=== PATIENT | female | born 1955 | race Caucasian/White ===

== ENCOUNTER 2021-09-17 14:19 | Outpatient (CLI) | payer OTHER, SELFPAY ==
[2021-09-17 15:59] LABS: SARS-CoV-2 RNA PCR Negative (Negative)
== END 2021-09-17 14:20 | disposition home or self-care (01) ==
LOC: CHSLAB 14:26
PROVIDERS: PCP Physician Assistant; Visit Provider Physician Assistant
DX: Z20.822 Contact with and (suspected) exposure to COVID-19 (principal)
CPT/HCPCS: C9803; U0003; U0005

== ENCOUNTER 2022-09-12 14:59 | Observation (INO) | payer MEDICARE, SELFPAY ==
[2022-09-12] VITALS (19 sets, daily range): BP systolic 141–150; BP diastolic 76–91; PULSE 94–118; RESP 18–28; TEMP 36.6–36.9; O2SAT 82–99; BMI 16.2
--- NOTE | ~2022-09-12 | XR_ITS ---
EXAMINATION: XR chest 1V portable Exam Date/Time: 09/12/2022 16:00 CDT HISTORY: Shortness of breath Comparison: None available. RESULT: Lines, tubes, and devices: None. Lungs and pleura: Hyperinflated lungs. Bilateral apical pleural scarring. Calcified left lower lobe granuloma. Bilateral costophrenic angle blunting, likely due to pleural scarring. Cardiomediastinal silhouette: Unremarkable. Other: No acute osseous or upper abdominal finding. IMPRESSION: No acute cardiopulmonary process. Reviewed, dictated and finalized at location K.
[2022-09-12] MEDS: IPRATROPIUM 0.5 MG/ALBUTEROL SULFATE 2.5 MG AMPUL.NEB 3 ML INHALATION ×3 (15:39→23:59)
--- NOTE | 2022-09-12 15:43 | ECG_ITS ---
Measurements Intervals [place] Rate: 94 P: 86 MA: 129 QRS: 98 QRSD: 82 T: 71 QT: 327 QTc: 410 Interpretive Statements SINUS RHYTHM RIGHT AXIS DEVIATION RIGHT ATRIAL ENLARGEMENT BASELINE ARTIFACT- I, II, III, AVR, AVL, V1-V4 BORDERLINE ECG NO PREVIOUS ECG AVAILABLE FOR COMPARISON Electronically Signed On 09-12-2022 20:17:40 CDT by Tonny Sorto D.O.
[2022-09-12] MEDS: methylPREDNISolone SOD SUCC 125 MG VIAL IV PUSH (16:07)
[2022-09-12 16:34] LABS: Basophils Absolute Auto 0.03 K/mm3 (0.00-0.10); Basophils Percent Auto 0.4 % (0.0-1.0); Eosinophils Absolute Auto 0.04 K/mm3 (0.02-0.50); Eosinophils Percent Auto 0.5 % (1.0-6.0); Hematocrit 47.3 % (35.0-49.0); Immature Granulocyte Absolute 0.03 K/mm3 (0.00-0.00); Immature Granulocyte Percent A 0.4 % (0.0-0.0); Lymphocytes Absolute Auto 1.18 K/mm3 (1.10-4.50); Lymphocytes Percent Auto 14.7 % (18.0-42.0); Mean Corpuscular HGB Conc 33.8 g/dL (32.0-36.0); Mean Corpuscular Hemoglobin 33.5 pg (27.0-31.0); Mean Platelet Volume 9.3 fl (9.2-11.8); Monocytes Absolute Auto 0.92 K/mm3 (0.10-0.90); Monocytes Percent Auto 11.5 % (2.0-11.0); Neutrophils Absolute Auto 5.8 K/mm3 (1.7-7.2); Neutrophils Percent Auto 72.5 % (50.0-70.0); Platelet Count Result 321 K/mm3 (150-420); Red Blood Count 4.78 M/mm3 (4.20-5.40); Red Cell Distribution Width 11.7 % (11.6-14.4)
[2022-09-12 16:35] LABS: HCO3 ABG 26.2 mmol/L (23-29); Oxygen Content ABG 20.7 %vol (16.0-22.0); Oxygen Saturation ABG 87.4 % (95-97); Oxyhemoglobin 85.7 % (94-100); PCO2 ABG 47.8 mmHg (35-45); PO2 ABG 53.4 mmHg (80-90); Total Hemoglobin 17.2 g/dL (12.0-18.0); pH ABG 7.36 (7.35-7.45)
[2022-09-12 16:37] LABS: Device ROOM AIR; Modified Allen's Test Pass; Site Drawn LEFT RADIAL
[2022-09-12 16:50] LABS: D Dimer 0.32 mg/L (0.19-0.50); INR 0.9; Partial Thromboplastin Time 29.3 SEC (23.90-30.70); Prothrombin Time 10.2 Seconds (9.50-12.10)
[2022-09-12 16:59] LABS: Alanine Aminotransferase 25 U/L (14-59); Albumin Level 3.8 g/dL (3.4-5.0); Alkaline Phosphatase 117 U/L (46-116); Anion Gap 6 mmol/L (8-16); Aspartate Amino Transferase 14 U/L (15-37); Bilirubin,Total 0.3 mg/dL (0.00-1.00); Blood Urea Nitrogen 3 mg/dL (7-18); Calcium 9.3 mg/dL (8.5-10.1); Carbon Dioxide 33 mmol/L (21-32); Chloride 94 mmol/L (98-108); Estimated Glomerular Filt Rate > 60; Glucose 101 mg/dL (70-99); Magnesium 1.7 mg/dL (1.8-2.4); NT Pro B Type Natriuretic Pept 62 pg/mL (0-125); Osmolality Calculated 272 mOsm/kg (285-295); Potassium 4.3 mmol/L (3.5-5.1); Sodium 133 mmol/L (136-145); Troponin I 4.3 ng/L (0.00-60.4)
[2022-09-12 17:30] LABS: SARS-CoV-2 RNA PCR Negative (Negative)
[2022-09-12 17:31] LABS: Influenza Control Valid (Valid)
[2022-09-12] MEDS: LEVALBUTEROL NEB 1.25 MG/3 ML INHALATION (17:32)
--- NOTE | 2022-09-12 17:55 | ED.SOB ---
HPI - SOB/Dyspnea General Chief Complaint: Shortness of Breath/Dyspnea Stated Complaint: SOB, asthma Time Seen by Provider: 09/12/22 15:05 Source: patient and family Mode of arrival: ambulatory History of Present Illness HPI Narrative: this is a 66-year-old female with a history of COPD recently saw her primary on Wednesday and was started on a Z-Gianluca. The patient has inhalers at home with and has been using it since Wednesday with no relief and today she just began more short of breath, does not use oxygen at home and initially air O2 sats were 82% and currently after receiving oxygen at2L per nasal cannula her O2 sats were 98%. There is no chest pain no abdominal pain she does have a nonproductive cough with no flank pain no fever chills. MD elicited complaint: shortness of breath and cough Pertinent past history: COPD Onset (ago): day(s) Context: recent illness Timing: constant Severity: moderate Exacerbating factors: coughing Relieving factors: oxygen, rest, bronchodilators and upright position Known history of: COPD Associated symptoms: cough Treatment prior to arrival: oxygen Related Data Home oxygen amount: none Home Medications Medication Instructions Recorded Confirmed benzonatate 100 mg capsule 100 mg PO TID PRN Cough 09/12/22 09/12/22 budesonide-formoterol HFA 160 See Rx Instructions .Route .COMPLEX 09/12/22 09/12/22 mcg-4.5 mcg/actuation aerosol inhaler montelukast 10 mg tablet 10 mg PO DAILY 09/12/22 09/12/22 Allergies Allergy/AdvReac Type Severity Reaction Status Date / Time No Known Allergies Allergy Verified 09/12/22 15:21 Review of Systems Review of Systems: All systems reviewed & are unremarkable except as noted in HPI and below [facility] Past Medical History Medical History COPD (chronic obstructive pulmonary disease) Exam Const: General: healthy appearing and no acute distress Nutritional Appearance: thin Limitations: no limitations HENMT: Head: normal to inspection Face/Nose/Sinus: Normal external nose present Face and sinus: normal facial exam Mouth: Yes Normal oral and palatal mucosa present Eyes: Conjunctivae: conjunctivae normal Pupils: Equal, round and reactive pupils present EOM: EOMs intact bilaterally Neck: Neck: normal visual inspection, no lymphadenopathy and no meningeal signs Chest: Chest palpation & inspection: normal inspection of the chest Resp: Effort & Inspection: normal respiratory effort Auscultation: diminished lung sounds Cardio: Rate: tachycardic Rhythm: regular rhythm GI: GI Palp: Yes Soft to palpation Auscultation: normal bowel sounds : General: Yes bladder normal to palpation Urinary Catheter: Urinary Catheter: patent and draining Back/Spine/Pelvis: Back: no CVA tenderness Skin: General skin exam: normal color Rashes: no rashes Wounds: no wounds Neuro: General: patient oriented x3, moves all extremities, no meningeal signs and no focal motor deficits Extrem: General: normal to inspection Psych: Mental Status: mental status grossly normal Affect: normal affect Course Course Emergency Course: patient after reassessment has a cough and is mildly short of breath especially after her cough patient had received DuoNebs and Xopenex and IV Solu-Medrol patient currently on 2L and satting at 98%, reviewed x-ray EKG and blood work. Vital Signs Vital signs: Vital Signs Temperature 36.8 C 09/12/22 15:00 Pulse Rate 101 H 09/12/22 15:00 Respiratory Rate 28 H 09/12/22 15:00 Blood Pressure 150/88 H 09/12/22 15:00 Pulse Oximetry 82 L 09/12/22 15:00 Oxygen Delivery Room Air 09/12/22 15:00 Temperature 36.6 C 09/12/22 16:00 Pulse Rate 111 H 09/12/22 17:49 Respiratory Rate 22 H 09/12/22 17:49 Blood Pressure 148/76 H 09/12/22 17:00 Pulse Oximetry 98 09/12/22 17:49 Oxygen Delivery Nasal Cannula 09/12/22 17:00 Oxygen Flow Rate 2 09/12/22 17:49 [facility] -
[2022-09-12 18:10] LABS: Base Excess ABG -2.8 mmol/L (0-2); HCO3 ABG 24.4 mmol/L (23-29); Oxygen Saturation ABG 96.7 % (95-97); Oxyhemoglobin 95.2 % (94-100); PCO2 ABG 51.2 mmHg (35-45); PO2 ABG 101.7 mmHg (80-90); Total Hemoglobin 15.6 g/dL (12.0-18.0)
[2022-09-12 18:11] LABS: Device NASAL CANNULA; Modified Allen's Test Pass; Site Drawn RIGHT RADIAL
--- NOTE | 2022-09-12 19:10 | ADMGEN ---
This patient, Sadie Conner, was admitted to 2nd Floor Room 208-1. Patient/family oriented to hospital policies and general routines including ID bracelet, bed and alarms, visiting hours, pain management, procedures, bathroom and other care routines, personal items, smoking policy, room service/diet, and visiting hours. Information on how to activate the Rapid Response Team has been discussed. Patient/Family are encouraged to report perceived risks to care and to ask questions if they do not understand what they are told or what they should do.
[2022-09-12] MEDS: NICOTINE (*PBKC) 21 MG PATCH 1 PATCH TRANSDERM (20:04)
[2022-09-12] MEDS: methylPREDNISolone SOD SUCC 125 MG VIAL 80 MG IV PUSH (21:27)
[2022-09-12] MEDS: traZODone HCL 50 MG TABLET PO (21:29)
[2022-09-12] MEDS: BENZONATATE 100 MG CAPSULE PO (21:29)
[2022-09-13] VITALS (10 sets, daily range): BP systolic 135–136; BP diastolic 86; PULSE 92–117; RESP 19–22; TEMP 36.3–36.8; O2SAT 89–97
[2022-09-13] MEDS: traMADol HCL (*CRX) 25 MG TABLET PO (01:06)
[2022-09-13 05:04] LABS: Mean Corpuscular HGB Conc 34.9 g/dL (32.0-36.0); Mean Corpuscular Hemoglobin 34.4 pg (27.0-31.0); Mean Corpuscular Volume 98.6 fL (78.0-102.0); Mean Platelet Volume 8.8 fl (9.2-11.8); Platelet Count Result 289 K/mm3 (150-420); Red Blood Count 4.36 M/mm3 (4.20-5.40); Red Cell Distribution Width 11.9 % (11.6-14.4); White Blood Count 4.6 K/mm3 (4.8-10.8)
[2022-09-13 05:19] LABS: Alanine Aminotransferase 21 U/L (14-59); Albumin Level 3.6 g/dL (3.4-5.0); Alkaline Phosphatase 107 U/L (46-116); Anion Gap 1 mmol/L (8-16); Aspartate Amino Transferase 11 U/L (15-37); Bilirubin,Total 0.2 mg/dL (0.00-1.00); Blood Urea Nitrogen 4 mg/dL (7-18); Calcium 9.2 mg/dL (8.5-10.1); Carbon Dioxide 37 mmol/L (21-32); Chloride 96 mmol/L (98-108); Estimated CRCL calculation 55 ml/min; Estimated Glomerular Filt Rate > 60; Glucose 147 mg/dL (70-99); Osmolality Calculated 277 mOsm/kg (285-295); Potassium 5.1 mmol/L (3.5-5.1); Sodium 134 mmol/L (136-145); Total Protein 7.6 g/dL (6.4-8.2)
[2022-09-13] MEDS: methylPREDNISolone SOD SUCC 125 MG VIAL 80 MG IV PUSH (06:06)
[2022-09-13] MEDS: IPRATROPIUM 0.5 MG/ALBUTEROL SULFATE 2.5 MG AMPUL.NEB 3 ML INHALATION (06:27)
[2022-09-13] MEDS: HYDROcodone/acetaminophen (*CRX) 5-325 MG TABLET 1 TAB PO (06:46)
--- NOTE | 2022-09-13 08:02 | PM.IMHP ---
H&P: HPI History of Present Illness Date/Time: 09/13/22 08:02 Chief Complaint: sob/ dyspnea Narrative: this is a 66-year-old female presented to emergency department with complaints of worsening shortness of breath. Patient has a past medical history of COPD. She is she is currently tobacco dependence. According to her shortness of breath worsened on Wednesday she called her primary care physician who prescribed her a Z-Gianluca. Patient notes that on Wednesday her situation did not improve so she proceeded to our emergency department. Patient notes that while she was at home she did use her nebulizer q 4 hours she also used her 's albuterol in her Symbicort. Patient WBCs 8.0, hemoglobin 16.1, hematocrit 47.3, platelets 321 sodium 133, potassium 4.3, BUN 3, creatinine 0.45, glucose 101, magnesium 1.7, total bilirubin 0.3, AST 14, ALT 25, troponin 4.3, BUN 62, ABG pH 7.36, CO2 47.8, O2 53.4, bicarb 26.2, chest x-ray no new findings patient treated with Solu-Medrol do nebulizer this admission. Patient condition has improved. The patient denies CP, palpitation, extremity numbness, lightheadedness, dizziness, constipation, diarrhea, chills, or fever. she continues to have shortness of breath with his chronic for her, she also continues to have an uncontrolled cough with chest congestion. Patient notes that she is near baseline and is anxious to discharge due to lack of sleep. Patient oxygen removed patient is satting 88% and greater on .room air which is probably baseline for her I did recommend the patient follow with primary care physician for oxygen eval. Discharge instructions reviewed with patient, as well as provided in writing per nursing staff. The instructions also include specific and strict return/GO TO THE ER as well as f/u information. All questions have been answered, and the patient and/or family deny any further questions with discharge and discharge plan. Review of Systems Review of Systems: All systems reviewed & are unremarkable except as noted in HPI and below [facility] Past Medical History Medical History (Updated 09/13/22 @ 08:10 by HUNG Peres) COPD (chronic obstructive pulmonary disease) Tobacco dependence Social History Social History Smoking packs per day: 0.5 Smoking cigarettes per day: 10.0 Years smoked: 50 Smoking pack-years: 25.00 Smoking status: Current every day smoker Tobacco type: cigarettes Second hand tobacco smoke exposure: Yes Alcohol intake: current Drinks per week: 12 Substance use: never Has the Lack of Transportation Kept You From Medical Appointments or From Getting Medications?: No Within the Past 12 Months, Were You Worried Whether Your Food Would Run Out Before You Got Money to Buy More?: Never True What is Your Housing Situation Today?: I Do Not Have Housing Are You Worried That in the Next 2 Months, You May Not Have Your Own Housing to Live In?: No Do You Have Trouble Paying Your Heating Or Electricity Bill?: No Do You Have Trouble Paying For Medicines?: No Are You Currently Unemployed and Looking for Work?: No Highest Level of Education Completed: Trade/Vocational Certificate Do You Have Trouble With Childcare or the Care of a Family Member?: No Spiritual care concerns: No Meds Home Medications and Allergies Home Medications Medication Instructions Recorded Confirmed Type budesonide-formoterol HFA 160 See Rx Instructions .Route .COMPLEX 09/12/22 09/12/22 History mcg-4.5 mcg/actuation aerosol inhaler montelukast 10 mg tablet 10 mg PO DAILY 09/12/22 09/12/22 History albuterol sulfate 90 mcg/actuation 1 inh inhalation QID PRN shortness 09/13/22 Rx aerosol inhaler (ProAir HFA) of breath or wheezing #6.7 grams azithromycin 250 mg tablet 250 mg PO DAILY 6 days #6 tabs 09/13/22 Rx benzonatate 100 mg capsule 100 mg PO TID PRN Cough 30 days 09/13/22 Rx #60 caps g
--- NOTE | 2022-09-13 09:00 | PC.NURSE ---
Pt states she will take her medications when she gets home.
--- NOTE | 2022-09-13 09:30 | PC.NURSE ---
Discharge instructions reviewed with pt. All questions answered. Pt transported via wheelchair to private vehicle for discharge.
--- NOTE | 2022-09-15 13:30 | PC.NURSE ---
Pt readmitted to following day. No discharge call back completed.
== END 2022-09-13 09:30 | disposition home or self-care (01) ==
LOC: CHSED 18:52 → CHS2ND 18:57
PROVIDERS: Nurse Practitioner; Admitting Provider Internal Medicine; Emergency Provider Emergency Medicine; PCP Physician Assistant; Visit Provider Internal Medicine
DX: J44.1 Chronic obstructive pulmonary disease with (acute) exacerbation (principal); F17.210 Nicotine dependence, cigarettes, uncomplicated; Z20.822 Contact with and (suspected) exposure to COVID-19
CPT/HCPCS: 36415; 36600; 71045; 80053; 82805; 83735; 83880; 84484; 85025; 85027; 85380; 85610; 85730; 87040; 87804; 93005; 94640; 96374; 96376; 99285; A9270; G0378; J2930; U0003; U0005

== ENCOUNTER 2022-09-14 09:10 | Observation (INO) | payer MEDICARE, SELFPAY ==
[2022-09-14] VITALS (14 sets, daily range): BP systolic 150–170; BP diastolic 79–106; PULSE 94–110; RESP 16–22; TEMP 36.4–37; O2SAT 57–100; BMI 16.5
--- NOTE | ~2022-09-14 | XR_ITS ---
EXAMINATION: XR chest 2V DATE: 09/14/2022 10:26 INDICATION: Shortness of breath TECHNIQUE: PA and lateral views of the chest were obtained. COMPARISON: Chest radiograph dated 09/12/2022 FINDINGS: Hyperexpansion of the lungs with scattered increased lucency and architectural distortion, flattening of the diaphragm and increased retrosternal clear space suggestive but not diagnostic of COPD. Calci fied nodules near the left costophrenic angle consistent with old granulomatous disease. Minimal biap ical pleural-parenchymal scarring. No other airspace opacities, pulmonary edema, pleural effusion or pneumothorax. The cardiomediastinal silhouette is normal. Mild to moderate thoracic spondylosis. IMPRESSION: 1. Hyperexpanded lungs suggestive but not diagnostic of COPD. No acute cardiopulmonary disease. Reviewed, dictated and finalized at location A. [facility] IMPRESSION: 1. Hyperexpanded lungs suggestive but not diagnostic of COPD. No acute cardiopu lmonary disease.
--- NOTE | 2022-09-14 09:39 | ECG_ITS ---
Measurements Intervals [place] Rate: 92 P: 80 [place]: 139 QRS: 80 QRSD: 85 T: 74 QT: 325 QTc: 404 Interpretive Statements SINUS RHYTHM ATRIAL PREMATURE COMPLEXES POSSIBLE RIGHT ATRIAL ENLARGEMENT PEAKED T WAVES- CONSIDER HYPERKALEMIA BASELINE ARTIFACT- I, II, III, AVR, AVL, AVF, V1-V2 ABNORMAL ECG COMPARED TO ECG 09/12/2022 15:43:35 PEAKED T WAVES- CONSIDER HYPERKALEMIA NOW PRESENT Electronically Signed On 09-14-2022 10:33:21 [employer] by Tonny Sorto D.O.
--- NOTE | 2022-09-14 09:43 | ED.SOB ---
HPI - SOB/Dyspnea General Chief Complaint: Shortness of Breath/Dyspnea Stated Complaint: sob Source: patient History of Present Illness HPI Narrative: 66-year-old a history of smoking, COPD has been having worsening shortness of breath for the past 1 week. She presented to the ER on 09/12/2022 and noted to have COPD exasperation. She had an ABG on 3 L which was noted to be 730/51/102. She had negative cardiac enzymes, negative D-dimer, negative influenza, negative COVID and an unremarkable chest x-ray. The patient was discharged on Garcia 04/2022 as she felt better and wanted to go home. She presents to the ER today with -- worsening shortness of breath with an oxygen saturation of 57% on room air. She was placed on 2 L with normalization of oxygen saturations -- cough with yellow sputum. No fever. No chest pain. MD elicited complaint: shortness of breath and cough Pertinent past history: COPD Onset (ago): day(s) ( Started 7 days ago) Timing: constant Severity: severe Exacerbating factors: exertion Relieving factors: nothing Known history of: COPD Associated symptoms: denies other symptoms, cough and sputum production Related Data Home oxygen amount: none Home Medications Medication Instructions Recorded Confirmed budesonide-formoterol HFA 160 See Rx Instructions .Route .COMPLEX 09/12/22 09/14/22 mcg-4.5 mcg/actuation aerosol inhaler montelukast 10 mg tablet 10 mg PO DAILY 09/12/22 09/14/22 Allergies Allergy/AdvReac Type Severity Reaction Status Date / Time No Known Allergies Allergy Verified 09/14/22 09:44 Review of Systems Review of Systems: All systems reviewed & are unremarkable except as noted in HPI and below Constitutional: Constitutional: Reports as per HPI and Reports no additional constitutional complaints Eyes: Eyes: Reports as per HPI and Reports no additional eye complaints ENT: Reports system reviewed and no additional complaints, except as documented and Reports as per HPI Cardiovascular: Cardiovascular: Reports as per HPI and Reports no additional cardiovascular complaints Respiratory: Respiratory: Reports as per HPI, Reports no additional respiratory complaints, Reports cough and Reports dyspnea Gastrointestinal: Gastrointestinal: Reports as per HPI and Reports no additional gastrointestinal complaints Genitourinary: Genitourinary: Reports no additional female genitourinary complaints and Reports as per HPI Musculoskeletal: Musculoskeletal: Reports no additional musculoskeletal complaints and Reports as per HPI Integumentary/Breasts: Skin/Breast: Reports system reviewed and no additional complaints, except as docu and Reports as per HPI Neurologic: Reports system reviewed and no additional complaints, except as documented and Reports as per HPI Psychiatric: Psychiatric: Reports no additional psychiatric complaints and Reports as per HPI Endocrine: Endocrine: Reports no additional endocrine complaints and Reports as per HPI Hematologic/Lymphatic: Hematologic/Lymphatic: Reports no additional hematologic/lymphatic complaints and Reports as per HPI Allergic/Immunologic: Allergic/Immunologic: Reports no additional allergic/immunologic complaints and Reports as per HPI [facility] Past Medical History Medical History COPD (chronic obstructive pulmonary disease) Tobacco dependence Social History Social History Smoking packs per day: 0.5 Smoking cigarettes per day: 10.0 Years smoked: 50 Smoking pack-years: 25.00 Smoking status: Current every day smoker Tobacco type: cigarettes Second hand tobacco smoke exposure: Yes Alcohol intake: current Drinks per week: 12 Substance use: never Has the Lack of Transportation Kept You From Medical Appointments or From Getting Medications?: No Within the Past 12 Months, Were You Worried Whether Your Food Would Run Out B[facility]or
[2022-09-14] MEDS: IPRATROPIUM 0.5 MG/ALBUTEROL SULFATE 2.5 MG AMPUL.NEB 3 ML INHALATION ×2 (09:59→23:35)
[2022-09-14 10:03] LABS: PCO2 ABG 56.8 mmHg (35-45); pH ABG 7.35 (7.35-7.45)
[2022-09-14 10:04] LABS: Base Excess ABG 3.1 mmol/L (0-2); Carboxyhemoglobin 0.8 % (0-1.5); HCO3 ABG 30.3 mmol/L (23-29); Methemoglobin ABG 0.3 % (0-1.5); Oxygen Content ABG 20.3 %vol (16.0-22.0); Oxyhemoglobin 94.9 % (94-100); PO2 ABG 87.2 mmHg (80-90); Total Hemoglobin 15.2 g/dL (12.0-18.0)
[2022-09-14 10:05] LABS: Basophils Absolute Auto 0.01 K/mm3 (0.00-0.10); Basophils Percent Auto 0.1 % (0.0-1.0); Eosinophils Absolute Auto 0.01 K/mm3 (0.02-0.50); Eosinophils Percent Auto 0.1 % (1.0-6.0); Hematocrit 42.2 % (35.0-49.0); Hemoglobin 14.7 g/dL (12.0-15.0); Immature Granulocyte Absolute 0.04 K/mm3 (0.00-0.00); Immature Granulocyte Percent A 0.4 % (0.0-0.0); Lymphocytes Absolute Auto 0.88 K/mm3 (1.10-4.50); Lymphocytes Percent Auto 9.7 % (18.0-42.0); Mean Corpuscular HGB Conc 34.8 g/dL (32.0-36.0); Mean Corpuscular Hemoglobin 34.7 pg (27.0-31.0); Mean Corpuscular Volume 99.5 fL (78.0-102.0); Mean Platelet Volume 8.9 fl (9.2-11.8); Monocytes Absolute Auto 0.75 K/mm3 (0.10-0.90); Monocytes Percent Auto 8.3 % (2.0-11.0); Neutrophils Absolute Auto 7.3 K/mm3 (1.7-7.2); Neutrophils Percent Auto 81.4 % (50.0-70.0); Platelet Count Result 335 K/mm3 (150-420); Red Blood Count 4.24 M/mm3 (4.20-5.40); Red Cell Distribution Width 11.9 % (11.6-14.4)
[2022-09-14 10:08] LABS: Device NASAL CANNULA; Modified Allen's Test Pass; Site Drawn RIGHT RADIAL
[2022-09-14 10:29] LABS: Alanine Aminotransferase 26 U/L (14-59); Albumin Level 3.7 g/dL (3.4-5.0); Alkaline Phosphatase 103 U/L (46-116); Anion Gap -2 mmol/L (8-16); Aspartate Amino Transferase 18 U/L (15-37); Bilirubin,Total 0.2 mg/dL (0.00-1.00); Blood Urea Nitrogen 7 mg/dL (7-18); Calcium 9.1 mg/dL (8.5-10.1); Carbon Dioxide 36 mmol/L (21-32); Chloride 89 mmol/L (98-108); Estimated Glomerular Filt Rate > 60; Glucose 108 mg/dL (70-99); Osmolality Calculated 255 mOsm/kg (285-295); Potassium 5.4 mmol/L (3.5-5.1); Sodium 123 mmol/L (136-145); Total Protein 7.6 g/dL (6.4-8.2)
[2022-09-14 10:30] LABS: NT Pro B Type Natriuretic Pept 114 pg/mL (0-125); Troponin I 6.6 ng/L (0.00-60.4)
[2022-09-14] MEDS: methylPREDNISolone SOD SUCC 40 MG VIAL IV PUSH ×3 (10:55→21:12)
--- NOTE | 2022-09-14 12:55 | PC.NURSE ---
Patient arrived to unit from ER. Patient educated on room number, hospital environment, use of call light, and policies r/t visitors and covid precautions. Patient voiced understanding. Patient has cell phone, but no other valuables.
[2022-09-14] MEDS: SODIUM POLYSTYRENE SULFONONATE 15 GM/60 ML BTL 30 GM PO (13:43)
[2022-09-14] MEDS: IPRATROPIUM BR 0.02% INH SOLN 0.5 MG/2.5 ML VIAL INHALATION (18:14)
[2022-09-14] MEDS: traZODone HCL 50 MG TABLET 100 MG PO (21:12)
[2022-09-14] MEDS: HYDROcodone/acetaminophen (*CRX) 5-325 MG TABLET 1 TAB PO (21:12)
[2022-09-15] VITALS (14 sets, daily range): BP systolic 118–140; BP diastolic 70–81; PULSE 86–113; RESP 16–20; TEMP 36.5–36.7; O2SAT 84–99
[2022-09-15] MEDS: IPRATROPIUM 0.5 MG/ALBUTEROL SULFATE 2.5 MG AMPUL.NEB 3 ML INHALATION (05:15)
[2022-09-15 05:21] LABS: Hematocrit 41.5 % (35.0-49.0); Hemoglobin 14.2 g/dL (12.0-15.0); Mean Corpuscular HGB Conc 34.2 g/dL (32.0-36.0); Mean Corpuscular Hemoglobin 33.8 pg (27.0-31.0); Mean Corpuscular Volume 98.8 fL (78.0-102.0); Mean Platelet Volume 8.8 fl (9.2-11.8); Platelet Count Result 310 K/mm3 (150-420); Red Cell Distribution Width 11.8 % (11.6-14.4); White Blood Count 5.6 K/mm3 (4.8-10.8)
[2022-09-15] MEDS: methylPREDNISolone SOD SUCC 40 MG VIAL IV PUSH (05:31)
[2022-09-15] MEDS: HYDROcodone/acetaminophen (*CRX) 5-325 MG TABLET 1 TAB PO (05:34)
[2022-09-15 05:36] LABS: Alanine Aminotransferase 24 U/L (14-59); Albumin Level 3.3 g/dL (3.4-5.0); Alkaline Phosphatase 90 U/L (46-116); Anion Gap -2 mmol/L (8-16); Aspartate Amino Transferase 15 U/L (15-37); Bilirubin,Total 0.2 mg/dL (0.00-1.00); Blood Urea Nitrogen 7 mg/dL (7-18); Calcium 8.6 mg/dL (8.5-10.1); Carbon Dioxide 41 mmol/L (21-32); Chloride 94 mmol/L (98-108); Estimated CRCL calculation 60 ml/min; Estimated Glomerular Filt Rate > 60; Glucose 128 mg/dL (70-99); Magnesium 1.9 mg/dL (1.8-2.4); Osmolality Calculated 276 mOsm/kg (285-295); Potassium 4.8 mmol/L (3.5-5.1); Sodium 133 mmol/L (136-145); Total Protein 6.8 g/dL (6.4-8.2)
--- NOTE | 2022-09-15 06:48 | PM.SD2 ---
Same Day Admit/Disch: HPI History of Present Illness Chief complaint: ACUTE HYPOXIC HYPERCARBIC RESP FAILURE Narrative: Sadie Conner is a 66 year old female that presented to our emergency department with complaints of shortness of breath and dyspnea. Patient previously discharged on 09/13/2022 after being admitted for copd exacerbation. patient has a past medical history of COPD and tobacco dependence. on previous admission patient discharged home with azithromycin albuterol, Tessalon Perles guaifenesin and prednisone. At last admission patient was encouraged to remain inpatient to get a home to evaluation before discharge. Patient was abdomen and anxious to discharge home. She is back today for the same symptoms. Home to evaluation indicates that patient will require 3 L nasal cannula continuously. she was also hyponatremia on admission. According to report from ER patient dronk a large amount of fluids. patient notes that she had on the average amount of fluid she also admitted to drinking and at least 6 beers per day. patient placed on a fluid restriction sodium level back to baseline. Patient wbc's 9.0, hemoglobin 14.7, hematocrit 42.2, platelets 335. PH 7.35, CO2 56.8, O2 87.2 bicarb 30.3 patient's blood gas has improved from previous admission sodium 123, potassium 5.4, BUN 7, creatinine 0.52, glucose 108, AST 18, total bilirubin 0.2, ALT 26, troponin 6.6,.B BNP 114, chest x-ray indicates COPD EKG sinus rhythm with a heart rate of 92. patient will be discharged today she was educated and informed that she will require 6 L nasal cannula continuous instructed not smoke around oxygen tank. The patient denies CP, palpitation, extremity numbness, lightheadedness, dizziness, constipation, diarrhea, chills, or fever. Discharge instructions reviewed with patient, as well as provided in writing per nursing staff. The instructions also include specific and strict return/GO TO THE ER as well as f/u information. All questions have been answered, and the patient and/or family deny any further questions with discharge and discharge plan. [facility] Past Medical History Medical History COPD (chronic obstructive pulmonary disease) Tobacco dependence Social History Social History Smoking packs per day: 1 Smoking cigarettes per day: 20.0 Years smoked: 50 Smoking pack-years: 50.00 Smoking status: Current some day smoker Tobacco type: cigarettes Second hand tobacco smoke exposure: Yes Alcohol intake: current Drinks per week: 12 Substance use: former Other substance usage details: marijuana Has the Lack of Transportation Kept You From Medical Appointments or From Getting Medications?: No Within the Past 12 Months, Were You Worried Whether Your Food Would Run Out Before You Got Money to Buy More?: Never True What is Your Housing Situation Today?: I Have Housing Are You Worried That in the Next 2 Months, You May Not Have Your Own Housing to Live In?: No Do You Have Trouble Paying Your Heating Or Electricity Bill?: Yes Do You Have Trouble Paying For Medicines?: No Are You Currently Unemployed and Looking for Work?: No Highest Level of Education Completed: Associate Degree Do You Have Trouble With Childcare or the Care of a Family Member?: No Spiritual care concerns: No Same Day Admit/Disch: Med Pre-admit Medications Home Medications Medication Instructions Recorded Confirmed Type budesonide-formoterol HFA 160 See Rx Instructions .Route .COMPLEX 09/12/22 09/14/22 History mcg-4.5 mcg/actuation aerosol inhaler montelukast 10 mg tablet 10 mg PO DAILY 09/12/22 09/14/22 History albuterol sulfate 90 mcg/actuation 1 inh inhalation QID PRN shortness 09/13/22 09/14/22 Rx aerosol inhaler (ProAir HFA) of breath or wheezing #6.7 grams azithromycin 250 mg tablet 250 mg PO DAILY 6 days #6 tabs
--- NOTE | 2022-09-15 07:25 | HOMEO2EVAL ---
Evaluation was performed at [facility] [place] Home Oxygen Evaluation RC: Home Oxygen (O2) Evaluation Start: 09/14/22 14:02 Freq: ONCE Status: Active Protocol: RPE Activity Type Activity Date Activity User E-sign Co-sign Detail Recorded Client Recorded Date Recorded By Document 09/15/22 07:00 [email or web address] 09/15/22 07:24 SJB Document 09/15/22 07:02 [email or web address] [email or web address] 09/15/22 07:24 SJB Document 09/15/22 07:04 [email or web address] [email or web address] 09/15/22 07:24 SJB Document 09/15/22 07:08 [email or web address] [email or web address] 09/15/22 07:24 SJB 09/15/22 09/15/22 09/15/22 07:00 07:02 07:04 Home O2 Evaluation [Oxygen] -Test Phase Resting Resting Exercise -Oxygen Delivery Room Air Nasal Cannula Nasal Cannula -Oxygen Flow Rate (L/min) 1 2 [Pulse Oximetry] -Pulse Oximetry (90-100 %) 87 L 84 L 86 L [Pulse Rate] -Pulse Rate (60-100 beats/min) 100 103 H 108 H [Evaluation] -Activity Tolerance Good Good -Rating of Perceived Dyspnea (PD) +2 Mild, Some Difficulty, Noticeable to the Observer -Rate of Perceived Exertion (PE) 9 Very light 12 Query Text:Click the Protocol Button to View the RPE Scale [Exercise] -Ambulation Distance (feet) 130 -Ambulation Distance (meters) 39.62 [Comments] -Home Oxygen Evaluation Comments Will start on 1 Pt was 89% on 1 After approx lpm at rest lpm at rest 130 ft on 2 lpm but when she , pt's Sp02 stood up to dropped to 86%. start walk, she Increased 02 dropped to 84% to 3 lpm. . will increase to 2 lpm. [Charges] -Treatment Charges O2 Evaluation - Outpatient 09/15/22 07:08 Home O2 Evaluation [Oxygen] -Test Phase Exercise -Oxygen Delivery Nasal Cannula -Oxygen Flow Rate (L/min) 3 [Pulse Oximetry] -Pulse Oximetry (90-100 %) 92 [Pulse Rate] -Pulse Rate (60-100 beats/min) 112 H [Evaluation] -Activity Tolerance Good -Rating of Perceived Dyspnea (PD) +2 Mild, Some Difficulty, Noticeable to the Observer -Rate of Perceived Exertion (PE) 12 Query Text:Click the Protocol Button to View the RPE Scale [Exercise] -Ambulation Distance (feet) 150 -Ambulation Distance (meters) 45.71 [Comments] -Home Oxygen Evaluation Comments Finishing the walk on 3 lpm keeping sp02 at 92%, after another 150 ft. Pt walked a total of 280 ft . Educated pt. on PLB, tolerated very well. [Charges] -Treatment Charges
[2022-09-15] MEDS: BUDESONIDE/FORMOTEROL (*SP) 160-4.5 MCG 6 GM INH 1 PUFF INHALATION (08:46)
[2022-09-15] MEDS: ENOXAPARIN 40 MG/0.4 ML SYRINGE SUB-Q (08:48)
[2022-09-15] MEDS: AZITHROMYCIN 250 MG TABLET PO (08:49)
[2022-09-15] MEDS: MONTELUKAST SODIUM 10 MG TABLET PO (08:50)
[2022-09-15] MEDS: LORATADINE 10 MG TABLET PO (08:50)
[2022-09-15] MEDS: METOPROLOL TARTRATE 6.25 MG TABLET PO (08:50)
[2022-09-15] MEDS: BENZONATATE 100 MG CAPSULE PO (08:53)
--- NOTE | 2022-09-15 13:25 | PC.NURSE ---
Discharge instructions explained to both patient and her . Both voiced understanding. Personal items sent home with patient. Patient left unit in w/c accompanied by nurse and left property in private vehicle. Home oxygen sent home with patient and set up through private agency. Patient educated again on need for oxygen and importance to not smoke near oxygen. Patient voiced understanding. Patient left property in private vehicle.
--- NOTE | 2022-09-21 09:34 | PC.NURSE ---
Unable to contact for discharge call back.
== END 2022-09-15 13:25 | disposition home or self-care (01) ==
LOC: CHSED 12:13 → CHS2ND 12:27
PROVIDERS: Nurse Practitioner; Admitting Provider Internal Medicine; Emergency Provider Internal Medicine Critical Care Medicine; PCP Physician Assistant; Visit Provider Internal Medicine
DX: J44.1 Chronic obstructive pulmonary disease with (acute) exacerbation (principal); J96.91 Respiratory failure, unspecified with hypoxia; J96.92 Respiratory failure, unspecified with hypercapnia; E87.1 Hypo-osmolality and hyponatremia; F17.210 Nicotine dependence, cigarettes, uncomplicated; F41.9 Anxiety disorder, unspecified; F10.90 Alcohol use, unspecified, uncomplicated
CPT/HCPCS: 36415; 36600; 71046; 80053; 82375; 82805; 83050; 83735; 83880; 84484; 85025; 85027; 93005; 94618; 94640; 96372; 96374; 96376; 97110; 97161; 97165; 99285; A9270; G0378; J1650; J2920

== ENCOUNTER 2025-09-30 23:01 | Emergency (ER) | payer MEDICARE, SELFPAY ==
[2025-09-30] VITALS (8 sets, daily range): BP systolic 149–194; BP diastolic 101–128; PULSE 95; RESP 16; TEMP 35.9; O2SAT 70–100
--- NOTE | ~2025-09-30 | CT_ITS ---
CHEST ABDOMEN PELVIS WITHOUT CONTRAST CLINICAL HISTORY: SHORTNESS OF BREATH. MIDLINE ABD PAIN. . COMPARISON: Chest x-rays 09/14/2022 TECHNIQUE: Helical CT performed from thoracic inlet to symphysis pubis Coronal, sagittal reformats CT images acquired with automatic exposure control for dose reduction DLP: 248 mGy-cm FINDINGS: CHEST- Lungs/Pleura: Emphysema, hyperinflation. 9 mm perifissural spiculated nodule right lower lobe. Thoracic Aorta: No aneurysm. Atherosclerotic disease. Pulmonary arteries: Normal caliber. Heart: Unremarkable. Tracheobronchial tree: Patent. Nodes: No enlarged nodes. Small mediastinal and left hilar calcifications. Bones: No acute bony abnormality. Soft tissues: Mild distal esophageal wall thickening/esophagitis. ABDOMEN/PELVIS- Liver: Enlarged. Gallbladder: Unremarkable. Spleen: Unremarkable. Small perisplenic cystic focus. Pancreas: Unremarkable. Adrenal glands: Unremarkable. Kidneys: Right kidney- No hydronephrosis. No renal stones. Left kidney- No hydronephrosis. No renal stones. Distal esophagus/stomach: Unremarkable. Small bowel loops: Normal caliber and wall thickness. Colon: Diverticula. Normal caliber and wall thickness. Normal RLQ appendix. Nodes: No enlarged nodes. Peritoneum: No ascites. No free air. Urinary bladder: Unremarkable. Uterus: Unremarkable. Adnexa: No masses. Bones: No acute bony abnormality. Soft tissues: Tiny periumbilical ventral hernia containing fat. Aorta: No aneurysm. Atherosclerotic disease. IVC: Unremarkable. IMPRESSION: CHEST- 1. 9 mm spiculated nodule right lung. Recommend PET/CT and/or biopsy. Alternatively, 3-month follow-up CT chest. 2. Emphysema. Recommend annual screening CT chest. 3. No acute abnormality. ABDOMEN/PELVIS- 1. No acute abnormality. Reviewed, dictated and finalized at location R. REACH OPERATOR IMPRESSION: CHEST- 1. 9 mm spiculated nodule right lung. Recommend PET/CT and/or biopsy. Alternat ively, 3-month follow-up CT chest. 2. Emphysema. Recommend annual screening CT chest. 3. No acute abnormality. ABDOMEN/PELVIS- 1. No acute abnormality.
--- NOTE | 2025-09-30 23:07 | ED_ITS ---
HPI - Abdominal Pain General Chief Complaint: Abdominal Pain Stated Complaint: high blood pressure Time Seen by Provider: 09/30/25 23:06 Source: patient Mode of arrival: ambulatory Limitations: no limitations History of Present Illness HPI narrative: Patient is a 70-year-old female with COPD and MAC on nasal cannula like oxygen at home presenting with hypoxia in the 70s % on her oxygen an abdominal pain with nausea today. MD elicited complaint: abdominal pain Pertinent past history: other (COPD, chronic hypoxia, mac) Onset (ago): hour(s) (1) Pain Consistency: constant and now resolved Location: diffuse and RLQ Severity: mild Pain scale (0-10): 1 Quality: cramping, fullness and sharp Radiation: none Migration to: no migration Exacerbating factors: nothing Relieving factors: nothing Context: confirms recent antibiotic use (For her MAC with pulmonology) Associated symptoms: nausea Treatments prior to arrival: other (None) Related Data Patient : Yes Home Medications ?Medication ?Instructions ?Recorded ?Confirmed ?Last Taken ?Type budesonide-formoterol HFA 160 See Rx Instructions .Rou te .COMPLEX 09/12/22 09/14/22 Unknown History mcg-4.5 mcg/actuation aerosol inhaler montelukast 10 mg tablet 10 mg PO DAILY 09/12/2205/29 Unknown History Allergies Allergy/AdvReac Type Severity Reaction Status Date / Time No Known Allergies Allergy Verified 09/14/22 09:44 Review of Systems 2 Review of Systems: All systems reviewed & are unremarkable except as noted in HPI and below Constitutional: Constitutional: Reports no additional constitutional complaints Eyes: Eyes: Reports no additional eye complaints ENT: Reports system reviewed and no additional complaints, except as documented Cardiovascular: Cardiovascular: Reports no additional cardiovascular complaints Respiratory: Respiratory: Reports no additional respiratory complaints Gastrointestinal: Gastrointestinal: Reports no additional gastrointestinal complaints Genitourinary: Genitourinary: Reports no additional female genitourinary complaints Musculoskeletal: Musculoskeletal: Reports no additional musculoskeletal complaints Integumentary/Breasts: Skin/Breast: Reports system reviewed and no additional complaints, except as docu Neurologic: Reports system reviewed and no additional complaints, except as documented Psychiatric: Psychiatric: Reports no additional psychiatric complaints Endocrine: Endocrine: Reports no additional endocrine complaints Hematologic/Lymphatic: Hematologic/Lymphatic: Reports no additional hematologic/lymphatic complaints Allergic/Immunologic: Allergic/Immunologic: Reports no additional allergic/immunologic complaints PMFSH Past Medical History Medical History Tobacco dependence COPD (chronic obstructive pulmonary disease) Social History Social History Smoking packs per day: 1 Smoking cigarettes per day: 20.0 Years smoked: 50 Smoking pack-years: 50.00 Smoking status: Current some day smoker Tobacco type: cigarettes Second hand tobacco smoke exposure: Yes Alcohol intake: current Drinks per week: 12 Substance use: former Other substance usage details: marijuana Lack of Transportation: No Lack of Food: Never True Current Housing: I Have Housing Concerned About Future Housing: No Difficulty Paying Gas/Electric Bills: YES Difficulty Paying for Meds: No Currently Unemployed: No Education: Associate Degree Difficulty w/ Childcare or Family Care: No Spiritual care concerns: No Exam 2 Const: General: healthy appearing Nutritional Appearance: thin O rientation/consciousness: patient oriented x3 Limitations: no limitations HENMT: Head: normal to inspection Ears: external ears normal F fredy/Nose/Sinus: Normal external nose present Eyes: Conjunctivae: conjunctivae normal Pupils: Equal, round and reactive pupils present EOM: EOMs intact bilaterally Neck: Neck: normal visual inspection Chest: Chest palpation & inspection: normal inspection of the chest Resp: Effort & Inspection: normal respiratory effort Cardio: Rate: regular rate Rhythm: regular rhythm Heart sounds: no murmurs GI: Inspection: non-distended GI Palp: Yes Soft to palpation, Yes Tenderness to palpation present (GI) (Diffuse), No Guarding due to palpation present (GI), No Rigid due to palpation, No Hernia present, No Palpable mass present and No Rebound tenderness present Auscultation: normal bowel sounds : General: Yes bladder normal to palpation Back/Spine/Pelvis: Back: no CVA tenderness Skin: General skin exam: normal color Rashes: no rashes Wounds: no wounds Neuro: General: patient oriented x3, moves all extremities and no meningeal signs Extrem: General: normal to inspection, no clubbing, cyanosis or edema, no pedal edema and no edema Psych: Mental Status: mental status grossly normal Affect: normal affect Attitude: cooperative Course Vital Signs Vital signs: Vital Signs Temperature 35.9 C L 09/30/25 23:04 Pulse Rate 95 09/30/25 23:04 Respiratory Rate 16 09/30/25 23:04 Blood Pressure 194/101 H 09/30/25 23:04 Pulse Oximetry 70 L 09/30/25 23:04 Oxygen Delivery Nasal Cannula 09/30/25 23:04 Oxygen Flow Rate 2 09/30/25 23:04 Temperature 35.9 C L 09/30/25 23:04 Pulse Rate 95 09/30/25 23:04 Respiratory Rate 16 09/30/25 23:04 Blood Pressure 194/101 H 09/30/25 23:04 Pulse Oximetry 70 L 09/30/25 23:04 Oxygen Delivery Nasal Cannula 09/30/25 23:04 Oxygen Flow Rate 2 09/30/25 23:04 MDM - Abdominal Pain MDM Narrative Medical decision making narrative: Patient is a 70-year-old female with some abdominal pain and nausea earlier which has resolved this time. We will do a GI workup at this time patient will need a CT scan of abdomen. We will add chest to the scan with hypoxemia issues on her home O2. Lab Data Attestation: I reviewed the patient's lab results. 09/30/25 23:58 09/30/25 23:58 Labs: Lab Results 09/30/25 09/30/25 Range/Units 23:50 23:58 WBC 3.7 L (4.8-10.8) K/mm3 RBC 3.84 L (4.20-5.40) M/mm3 Hgb 12.3 (11.7-13.8) g/dL Hct 37.6 (35.0-42.0) % MCV 97.9 (78.0-102.0) fL MCH 32.0 H (27.0-31.0) pg MCHC 32.7 (32-36) g/dL RDW 11.9 (11.6-14.4) % Plt Count 220 (150-420) K/mm3 MPV 9.5 (9.2-11.8) fl Immature Gran % (Auto) Not Reportable Neut % (Auto) Not Reportable Lymph % (Auto) Not Reportable Humphreys % (Auto) Not Reportable Eos % (Auto) Not Reportable Baso % (Auto) Not Reportable Lymph # (Auto) Not Reportable Humphreys # (Auto) Not Reportable Eos # (Auto) Not Reportable Baso # (Auto) Not Reportable Abs Immat Gran (auto) Not Reportable Absolute Neuts (auto) Not Reportable Absolute Nucleated RBC Not Reportable Total Counted 100 Neutrophils % (Manual) 46 (46-73) % Band Neutrophils % 0 (0-6) % Lymphocytes % (Manual) 36 (18-44) % Monocytes % (Manual) 12 H (3-9) % Eosinophils % (Manual) 5 (1-6) % Basophils % (Manual) 1 (0-1) % Nucleated RBC % Not Reportable Abs Neuts (Manual) 1.70 (1.3-6.7) K/mm3 Abs Lymphs (Manual) 1.33 (1.1-4.5) K/mm3 Abs Monocytes (Manual) 0.44 (0.1-0.90) K/mm3 Absolute Eos (Manual) 0.18 (0.02-0.50) K/mm3 Abs Basophils (Manual) 0.03 (0-0.1) K/mm3 Platelet Estimate Adequate (Adequate) Schistocytes None seen PT 9.3 L (9.50-12.1) Seconds INR < 0.8 APTT 24.6 (23.9-30.70) Sec Sodium 136 L (137-145) mmol/L Potassium 4.4 (3.4-5.0) mmol/L Chloride 92 L (98-107) mmol/L Carbon Dioxide 36 H (22-30) mmol/L Anion Gap 8 (4-12) mmol/L BUN 5 L (7-17) mg/dL Creatinine 0.47 L (0.7-1.0) mg/dL Estim Creat Clear Calc 68 ml/min Estimated GFR > 60 (59 - ) Glucose 62 L (65-110) mg/dL Calculated Osmolality 277 L (285-295) mOsm/kg Lactic Acid 1.9 (0.7-2.0) mmol/L Calcium 9.1 (8.4-10.2) mg/dL Total Bilirubin 0.1 L (0.2-1.3) mg/dL AST 44 H (14-36) U/L ALT 25 (6-35) U/L Alkaline Phosphatase 68 (38-126) U/L Troponin I < 0.012 (0.000-0.034) ng/mL NT-Pro-B Natriuret Pep 141 H (19.9-100) pg/mL Total Protein 7.9 (6.3-8.2) g/dL Albumin 4.8 (3.5-5.1) g/dL Lipase 100 (23-300) U/L Urine Color Light yellow (Yellow) Urine Appearance Clear (Clear) Urine pH 5.5 (5.0-8.0) Ur Specific [place] >= 1.030 H (1.010-1.020) Urine Protein Negative (Negative) Urine Glucose (UA) Negative (Negative) Urine Ketones Trace H (Negative) Ur Blood (Man) Negative (Negative) Urine Nitrate Negative (Negative) Urine Bilirubin Negative (Negative) Urine Urobilinogen 0.2 (0.2-1.0) mg/dL Leukocyte Esterase Rfl Negative (Negative) MONCHO/UL Imaging Data Attestation: I personally reviewed and interpreted this imaging study as follows: Radiologist's impression: CT scan of the chest abdomen and pelvis are negative for acute process ECG Data EKG #1: Attestation: I personally reviewed and interpreted this ECG as follows: ECG completion date: 09/30/25 ECG completion time: 23:37 Interpretation: Enlarged P wave correlating with hypertrophy of the atrium normal rate, sinus rhythm, no ectopy, non-specific ST changes, normal QRS, normal QT and NL axis Discharge Plan Discharge Clinical Impression: Viral gastroenteritis Patient Disposition: Home Condition: Stable Instructions: Gastroenteritis (ED) Patient Language: Sammarinese Prescriptions: New ondansetron 4 mg tablet,disintegrating 4 mg PO Q6H PRN (Reason: nausea and vomiting) Qty: 20 0RF No Action montelukast 10 mg tablet 10 mg PO DAILY budesonide-formoterol 160-4.5 mcg/actuation HFA aerosol inhaler See Rx Instructions .ROUTE .COMPLEX Rx Instructions: per pmd orders nicotine [Nicoderm CQ] 21 mg/24 hr Patch 24 Hour 1 patch transdermal DAILY Qty: 30 0RF albuterol sulfate [ProAir HFA] 90 mcg/actuation HFA aerosol inhaler 1 inh inhalation QID PRN (Reason: shortness of breath or wheezing) Qty: 6.7 3RF prednisone 20 mg tablet 20 mg PO DAILY Qty: 21 0RF Rx Instructions: 20 mg t.i.d. for 4 days then 20 mg b.i.d. for 3 days then 20 mg daily for 3 days 21 pills azithromycin 250 mg tablet 250 mg PO DAILY 6 Days Qty: 6 0RF Rx Instructions: start on day 2 of therapy guaifenesin 400 mg tablet 400 mg PO QID 10 Days Qty: 40 0RF loratadine [Claritin] 10 mg tablet 10 mg PO DAILY 6 Days Qty: 6 0RF benzonatate 100 mg capsule 100 mg PO TID PRN (Reason: Cough) 30 Days Qty: 60 0RF bupropion HCl [Wellbutrin SR] 150 mg tablet sustained-release 12 hr 150 mg PO QAM Qty: 30 0RF lorazepam [Ativan] 1 mg tablet 1 mg PO TID PRN (Reason: anxiety) Qty: 30 0RF ciprofloxacin HCl 0.3 % ointment 1 applic RIGHT EYE ONCE 5 Days Qty: 3.5 0RF Follow-up/Referrals: Yue,DAMIAN Jose [Primary Care Provider] Time of Disposition: 02:04
[2025-09-30] MEDS: ONDANSETRON HCL ODT 4 MG TABLET PO (23:24)
--- NOTE | 2025-09-30 23:24 | ECG_ITS ---
Test Date: 2025-09-30 23:31:35 Measurements Intervals Venus Rate: 87 P: 84 VA: 147 QRS: 71 QRSD: 86 T: 62 QT: 353 QTc: 425 Interpretive Statements SINUS RHYTHM RIGHT ATRIAL ENLARGEMENT [0.3mV P-WAVE] POSSIBLE LEFT ATRIAL ENLARGEMENT [-0.1mV P-WAVE IN V1/V2] No previous ECG available for comparison Electronically Signed On 10-01-2025 07:36:11 BIN FILLER by Sara Oconnor M.D.
[2025-10-01] VITALS (16 sets, daily range): BP systolic 102–118; BP diastolic 66–78; O2SAT 95–100
--- NOTE | 2025-10-01 | CONSULT_PTH ---
PATIENT: Sadie Conner LOC: [facility]#:[id number] AGE/SX: 70/F ROOM: RE09/30/[address]: Joseph Verma MD : 1955 BED: DIS: 10/01/2025 SPEC #: [id number] RECD: 10/01/25 10:22 STATUS: SARAHI REQ #: [id number] TAWNY: 10/01/25 00:[address]: Joseph Verma DEPT: [facility] Consult RECD BY: Angie Yadav MLT, ([facility]) ENTERED: 10/01/25 10:22 SP TYPE: Consult OTHR DR: Ishaan Turner, PA Tissues: A - Peripheral Smear Procedures: Hematology Consult
[2025-10-01 00:14] LABS: Hematocrit 37.6 % (35.0-42.0); Hemoglobin 12.3 g/dL (11.7-13.8); Mean Corpuscular HGB Conc 32.7 g/dL (32-36); Mean Corpuscular Hemoglobin 32.0 pg (27.0-31.0); Mean Corpuscular Volume 97.9 fL (78.0-102.0); Platelet Count Result 220 K/mm3 (150-420); Red Blood Count 3.84 M/mm3 (4.20-5.40); White Blood Count 3.7 K/mm3 (4.8-10.8)
[2025-10-01 00:15] LABS: Add Urine Microscopic? NO; Appearance Urine Clear (Clear); Glucose Urine UA Negative (Negative); Leukocyte Esterase Ur Negative LEU/UL (Negative); Nitrate Urine Negative (Negative); Specific Grav Ur >= 1.030 (1.010-1.020)
[2025-10-01 00:35] LABS: Alanine Aminotransferase 25 U/L (6-35); Albumin Level 4.8 g/dL (3.5-5.1); Alkaline Phosphatase 68 U/L (38-126); Anion Gap 8 mmol/L (4-12); Aspartate Amino Transferase 44 U/L (14-36); Bilirubin,Total 0.1 mg/dL (0.2-1.3); Blood Urea Nitrogen 5 mg/dL (7-17); Calcium 9.1 mg/dL (8.4-10.2); Carbon Dioxide 36 mmol/L (22-30); Chloride 92 mmol/L (98-107); Estimated CRCL calculation 68 ml/min; Estimated Glomerular Filt Rate > 60; Glucose 62 mg/dL (65-110); Lipase 100 U/L (23-300); Osmolality Calculated 277 mOsm/kg (285-295); Potassium 4.4 mmol/L (3.4-5.0); Sodium 136 mmol/L (137-145); Total Protein 7.9 g/dL (6.3-8.2)
[2025-10-01 00:41] LABS: INR < 0.8; Partial Thromboplastin Time 24.6 Sec (23.9-30.70); Prothrombin Time 9.3 Seconds (9.50-12.1)
[2025-10-01 00:46] LABS: NT Pro B Type Natriuretic Pept 141 pg/mL (19.9-100); Troponin I < 0.012 ng/mL (0.000-0.034)
[2025-10-01 00:58] LABS: Band Neutrophils Percent 0 % (0-6); Basophils Absolute Manual 0.03 K/mm3 (0-0.1); Basophils Percent Manual 1 % (0-1); Eosinophils Absolute Manual 0.18 K/mm3 (0.02-0.50); Eosinophils Percent Manual 5 % (1-6); Lymphocytes Absolute Manual 1.33 K/mm3 (1.1-4.5); Lymphocytes Percent Manual 36 % (18-44); Monocytes Absolute Manual 0.44 K/mm3 (0.1-0.90); Monocytes Percent Manual 12 % (3-9); Neutrophils Absolute Manual 1.70 K/mm3 (1.3-6.7); Neutrophils Percent Manual 46 % (46-73); Total Cells Counted 100
[2025-10-01 00:59] LABS: Schistocytes None Seen
[2025-10-01] MEDS: ONDANSETRON HCL ODT 4 MG TABLET PO (02:07)
--- NOTE | 2025-10-04 14:21 | PC.NURSE ---
blood culture, preliminary, no growth
--- NOTE | 2025-10-05 17:15 | PC.NURSE ---
blood culture, preliminary, no growth
--- NOTE | 2025-10-08 13:19 | PC.NURSE ---
FINAL BLOOD CULTURE REPORT, NO GROWTH IN 5 DAYS.
== END 2025-10-01 02:15 | disposition home or self-care (01) ==
PROVIDERS: Emergency Provider Emergency Medicine; PCP Physician Assistant
DX: A08.4 Viral intestinal infection, unspecified (principal); J44.9 Chronic obstructive pulmonary disease, unspecified; F17.210 Nicotine dependence, cigarettes, uncomplicated; Z99.81 Dependence on supplemental oxygen
CPT/HCPCS: 36415; 71250; 74176; 80053; 81003; 83605; 83690; 83880; 84484; 85025; 85610; 85730; 93005; 99284; A9270